=== PATIENT | female | born 1980 | race Caucasian/White ===

== ENCOUNTER → 2023-08-15 | Outpatient (CLI) | payer BC ==
[~2023-08-15] MED LIST: CALCIUM1 CAP PO; MOTRIN 600600 MG/TAB PO; PERCOCET 325 MG1 TA2 PO; PRENATAL1 TA1 PO; TYLENOL PM EXTR1 TA1 PO
== END ==
LOC: MC.RAD 10:33
DX: N60.02 Solitary cyst of left breast (principal)